=== PATIENT | female | born 1980 ===

== ENCOUNTER 2018-04-09 11:54 | Emergency (ER) | payer OTHER ==
[2018-04-09 12:26] VITALS: BMI 29.9
[2018-04-09 12:29] VITALS: TEMP 98.8
--- NOTE | 2018-04-09 13:31 | C.PDOC ---
History Of Present Illness 38-year-old female presents to the ED complaining of sore throat since last night. Associated with a cough for the past 2-3 days. Otherwise denies any fever , chills, SOB, wheezing, or chest tightness. Denies hx of asthma. Time Seen by Provider: 04/09/18 12:45 Chief Complaint (Nursing): ENT Problem History Per: Patient History/Exam Limitations: no limitations Onset/Duration Of Symptoms: Days Current Symptoms Are (Timing): Still Present Past Medical History Reviewed: Historical Data, Nursing Documentation, Vital Signs Vital Signs: Last Vital Signs Temp 98.8 F 04/09/18 12:26 Pulse 86 04/09/18 12:26 Resp 20 04/09/18 12:26 BP 127/80 04/09/18 12:26 Pulse Ox 98 04/09/18 13:37 Surgical History: No Surg Hx Family History: States: Unknown Family Hx - Social History Hx Tobacco Use: No Hx Alcohol Use: No Hx Substance Use: No - Immunization History Hx Tetanus Toxoid Vaccination: No Hx Influenza Vaccination: No Hx Pneumococcal Vaccination: No Review Of Systems Except As Marked, All Systems Reviewed And Found Negative. Constitutional: Negative for: Fever, Chills ENT: Positive for: Throat Pain Cardiovascular: Negative for: Chest Pain Respiratory: Positive for: Cough. Negative for: Shortness of Breath, Wheezing Physical Exam - Physical Exam Appears: Non-toxic, No Acute Distress Skin: Normal Color, Warm, No Rash Head: Atraumatic, Normacephalic Eye(s): bilateral: Normal Inspection, PERRL, EOMI Ear(s): Bilateral: Normal Oral Mucosa: Moist Throat: No Erythema, No Exudate Neck: Normal ROM, No Midline Cervical Tenderness, No Paracervical Tenderness, Supple Lymphatic: Normal Exam Cardiovascular: Rhythm Regular, No Friction Rub, No Murmur Respiratory: Normal Breath Sounds, No Rales, No Rhonchi, No Wheezing Gastrointestinal/Abdominal: Soft, No Tenderness Back: Normal Inspection, No CVA Tenderness, No Vertebral Tenderness, No Paraspinal Tenderness Extremity: Normal ROM, No Tenderness, No Swelling Neurological/Psych: Oriented x3, Normal Speech Gait: Steady ED Course And Treatment O2 Sat by Pulse Oximetry: 98 (RA) Pulse Ox Interpretation: Normal Medical Decision Making Medical Decision Making: Plan: --Motrin 600 mg PO --Prednisone 60 mg PO --Claritin 10 mg PO Disposition - Disposition Referrals: [facility] [Outside] Disposition: HOME/ ROUTINE Disposition Time: 13:50 Condition: GOOD Additional Instructions: Follow up with the medical doctor/clinic within 1-2 days without fail. Return if worsened. Prescriptions: Ibuprofen [Motrin] 1 tab PO TID PRN #30 tab PRN Reason: Pain Loratadine [Claritin] 10 mg PO DAILY #10 tab predniSONE [Prednisone] 10 mg PO BID #10 tab Instructions: Viral Upper Respiratory Infection, Adult (DC) Forms: [employer] (Spanish) Print Language: BULGARIAN - Clinical Impression Clinical Impression: Upper respiratory infection - PA / SCIENTIFIC DATABASE CURATOR / Resident Statement MD/DO has reviewed & agrees with the documentation as recorded. - Scribe Statement The provider has reviewed the documentation as recorded by the Scribe (Janet Pierce) All medical record entries made by the Scribe were at my direction and personally dictated by me. I have reviewed the chart and agree that the record accurately reflects my personal performance of the history, physical exam, medical decision making, and the department course for this patient. I have also personally directed, reviewed, and agree with the discharge instructions and disposition.
[2018-04-09 14:10] VITALS: BP 135/78; PULSE 76; RESP 108; O2SAT 99
== END 2018-04-09 14:08 | disposition home or self-care (01) ==
LOC: C.ER 11:54
DX: J06.9 Acute upper respiratory infection, unspecified (principal)

== ENCOUNTER 2018-09-26 09:45 | Emergency (ER) | payer OTHER ==
[2018-09-26 09:45] VITALS: BMI 29.9
[2018-09-26 09:59] VITALS: BP 148/88; PULSE 96; RESP 16; TEMP 98.8; O2SAT 100
--- NOTE | 2018-09-26 10:25 | C.PDOC ---
History Of Present Illness CC: Feeling ill HPI: Patient is 38 year old female with no past medical history, who presents to the ED with complaints of sore throat, tearing eyes, itchy ears for the past 3 days. Patient states that her symptoms are worse in the morning. Patient has had similar presentation in the past and was given Claritin, which provided some relief. Patient admits to subjective fever and productive cough with white sputum but denies any symptoms of chest pain, palpitations, shortness of breath, nausea, vomiting, abdominal pain, diarrhea or sick contact. Time Seen by Provider: 09/26/18 10:07 Chief Complaint (Nursing): Flu-like Symptoms History Per: Patient History/Exam Limitations: no limitations Onset/Duration Of Symptoms: Days Current Symptoms Are (Timing): Still Present Severity: Mild Pain Scale Rating Of: 3 Recent travel outside of the [place]: No Past Medical History Vital Signs: Last Vital Signs Temp 98.8 F 09/26/18 09:58 Pulse 96 H 09/26/18 09:58 Resp 16 09/26/18 09:58 BP 148/88 09/26/18 09:58 Pulse Ox 100 09/26/18 09:58 Family History: States: Unknown Family Hx - Social History Hx Tobacco Use: No Hx Alcohol Use: No Hx Substance Use: No - Immunization History Hx Tetanus Toxoid Vaccination: No Hx Influenza Vaccination: No Hx Pneumococcal Vaccination: No Review Of Systems Constitutional: Positive for: Fever, Chills. Negative for: Weakness, Malaise, Weight loss Eyes: Positive for: Other (Teary eyes ). Negative for: Pain, Vision Change Cardiovascular: Negative for: Chest Pain, Palpitations, Orthopnea Respiratory: Positive for: Cough. Negative for: Shortness of Breath, Hemoptysis, SOB with Excertion, Wheezing Gastrointestinal: Negative for: Nausea, Vomiting, Abdominal Pain, Diarrhea Musculoskeletal: Negative for: Neck Pain, Shoulder Pain, Arm Pain Physical Exam - Physical Exam Appears: No Acute Distress Skin: Normal Color Head: Atraumatic, Normacephalic Eye(s): bilateral: Normal Inspection, PERRL, EOMI Ear(s): Bilateral: Normal Nose: Normal Oral Mucosa: Moist Tongue: Normal Appearing Lips: Normal Appearing Neck: Normal ROM Cardiovascular: Rhythm Regular, No Murmur Respiratory: Normal Breath Sounds, No Decreased Breath Sounds, No Accessory Muscle Use, No Rales, No Stridor, No Wheezing Gastrointestinal/Abdominal: Normal Exam, Bowel Sounds, Soft, No Tenderness ED Course And Treatment O2 Sat by Pulse Oximetry: 100 Disposition Discussed With : Glenys Garnica - Disposition Disposition: HOME/ ROUTINE Disposition Time: 10:25 Condition: FAIR Additional Instructions: Please discharge patient home Please use the following medications: - Claritin 10mg PO daily - Normal saline nasal spray, two spray nasal in each nostril daily - Cepacol BID for sore throat Please take motrin or naproxen for fever as needed Please follow up with your PCP at [facility] in 1-3 days Please return to the hospital if symptoms worsens Please take care Prescriptions: Benzocaine/Menthol [Cepacol Sore Throat Lozenge] 1 each MM BID #30 lozenge Loratadine [Claritin] 10 mg PO DAILY #30 tab Sodium Chloride [Saline Nasal [place]] 30 ml NS DAILY #1 spray Instructions: Seasonal Allergies in Adults, Seasonal Allergies (DC), Viral Upper Respiratory Infection, Adult (DC), Cough, Runny Nose, and the Common Cold (DC) Forms: [facility] (Syriac), Gen Discharge Inst Turkmen Print Language: CITIZEN OF [place] - Clinical Impression Clinical Impression: Upper respiratory infection, Cold, allergic
== END 2018-09-26 10:37 | disposition home or self-care (01) ==
LOC: C.ER 09:45
DX: J06.9 Acute upper respiratory infection, unspecified (principal); J00 Acute nasopharyngitis [common cold]; T78.40XA Allergy, unspecified, initial encounter

== ENCOUNTER 2019-02-13 10:09 | Outpatient (CLI) | payer SELFPAY | END 2019-02-13 10:10 | disposition home or self-care (01) | LOC: C.LAB 10:09 | DX: R94.5 Abnormal results of liver function studies (principal); Z13.9 Encounter for screening, unspecified ==